=== PATIENT | female | born 1960 | race Caucasian/White ===

== ENCOUNTER 2022-11-28 00:03 | Emergency (ER) | payer MEDICAID ==
[~2022-11-28] VITALS: Ht 177.8 cm; Wt 94.3 kg
[2022-11-28 00:52] VITALS: BP 136/83
--- NOTE | 2022-11-28 00:54 | NUR ---
PRESENTED TO THE ER FOR EVALUATION OF L THIGHT, ABOVE THE KNEE CELLULITIS STARTED ON MONDAY NIGHT. AREA WITH REDNESS, AND HOT TO TOUCH. PT AFEBRILE. DENIED FEVER OR CHILLS AT HOME. PT WAS PLACED IN BED 7 ER. VSS. WILL CONT TO MONITOR
[2022-11-28] MEDS ORDERED: SULF1TAB48 PO (00:59)
[2022-11-28] MEDS ORDERED: CEPH500C2 PO (00:59)
[2022-11-28] MEDS ORDERED: CEPHALEXIN MONOHYDRATE 500 MG CAPSULE PO ONE ×2 (01:00→01:03)
[2022-11-28] MEDS ORDERED: SULFAMETH/TRIMETH 800/160 MG 1 UDTAB TABLET PO ONE (01:00)
[2022-11-28] MEDS ORDERED: SULFAMETH/TRIMETH 800/160 MG 1 UDTAB TABLET ONE (01:03)
--- NOTE | 2022-11-28 01:07 | NUR ---
Patient discharged to home in stable condition. Written and verbal after care instructions given. Patient verbalizes understanding of instruction.
== END 2022-11-28 01:13 | disposition home or self-care (01) ==
LOC: ER 00:07
DX: L03.116 Cellulitis of left lower limb (principal)